=== PATIENT | female | born 1985 | race Hispanic/Latino ===

== ENCOUNTER 2017-03-26 00:23 | Emergency (ER) | payer SELFPAY ==
[2017-03-26 00:46] VITALS: BP 115/76; PULSE 76; RESP 16; TEMP 98; O2SAT 98
[2017-03-26] MEDS ORDERED: Sodium Chloride 0.9% 1,000 ML IV STA (01:00)
[2017-03-26 01:42] LABS: BASO # 0.1 K/uL (0.0-0.2); BASO % 0.7 % (0.0-2.0); EOS # 0.1 K/uL (0.0-0.7); EOS % 1.2 % (0.0-4.0); HEMATOCRIT 38.5 % (34.0-47.0); LYMPH # 2.4 K/uL (1.0-4.3); LYMPH % 21.9 % (20.0-40.0); MEAN CORPUSCULAR HEMOGLOBIN 30.8 pg (27.0-31.0); MEAN CORPUSCULAR HGB CONC 33.1 g/dL (33.0-37.0); MEAN PLATELET VOLUME 9.3 fl (7.2-11.7); MONO # 1.3 K/uL (0.0-0.8); MONO % 12.2 % (0.0-10.0); NEUT # 6.9 K/uL (1.8-7.0); RED CELL DISTRIBUTION WIDTH 13.3 % (11.5-14.5); WHITE BLOOD COUNT 10.8 K/uL (4.8-10.8)
[2017-03-26 01:54] LABS: BLOOD UREA NITROGEN 17 mg/dl (7-17); CALCIUM 9.1 mg/dL (8.4-10.2); CARBON DIOXIDE 27 mmol/L (22-30); CHLORIDE 104 mmol/L (98-107); GFR AFRICAN-AMERICAN > 60; GLUCOSE,RANDOM 85 mg/dL (65-105); POTASSIUM 3.7 MMOL/L (3.6-5.0); SODIUM 141 mmol/l (132-148)
[2017-03-26] MEDS ORDERED: Vancomycin 1 g Inj ONE (02:10)
--- NOTE | 2017-03-26 03:20 | ED PDOC ---
HPI: Skin/Bite Injury Time Seen by Provider: 03/26/17 00:51 Chief Complaint (Nursing): Abnormal Skin Integrity Chief Complaint (Provider): Rash History Per: Patient History/Exam Limitations: no limitations Onset/Duration Of Symptoms: Days (x1-2) Current Symptoms Are (Timing): Still Present Location Of Injury: Right: Elbow Quality Of Symptoms: Other (Erythematous) Additional Complaint(s): 31 year old female presents to ED with complaints of a rash on her right elbow x1-2 days and has a past medical history of psoriasis. Notes that after scratching the area, it is red with streaking upwards to the right armpit area. (+) pain and swelling to the area. (-) fever, chill, or other systemic symptoms. Patient denies IV drug use. PCP: None Past Medical History Reviewed: Historical Data, Nursing Documentation, Vital Signs Vital Signs: Last Vital Signs Temp 98.0 F 03/26/17 00:44 Pulse 76 03/26/17 00:44 Resp 16 03/26/17 00:44 BP 115/76 03/26/17 00:44 Pulse Ox 98 03/26/17 03:23 - Medical History Other PMH: Psoriasis - Surgical History Surgical History: No Surg Hx - Family History Family History: States: No Known Family Hx - Home Medications Home Medications: Ambulatory Orders Medication Instructions Recorded Clindamycin [Cleocin] 300 mg PO TID 10 Days 03/26/17 Ibuprofen [Motrin Tab] 600 mg PO Q6 #30 tab 03/26/17 - Allergies Allergies/Adverse Reactions: Allergies Allergy/AdvReac Type Severity Reaction Status Date / Time No Known Allergies Allergy Verified 03/26/17 00:46 Review of Systems ROS Statement: Except As Marked, All Systems Reviewed And Found Negative Constitutional: Negative for: Fever, Chills Musculoskeletal: Positive for: Arm Pain (with swelling, from right elbow to right axilla) Skin: Positive for: Rash Physical Exam - Reviewed Nursing Documentation Reviewed: Yes Vital Signs Reviewed: Yes - Physical Exam Appears: Positive for: Non-toxic, No Acute Distress Skin: Positive for: Warm, Dry, Rash (swelling and erythematous right elbow. Streaking towards axilla. No inflamed nodes in right axilla) Eye Exam: Positive for: Normal appearance Neck: Positive for: Normal Cardiovascular/Chest: Negative for: Murmur Respiratory: Negative for: Respiratory Distress Gastrointestinal/Abdominal: Positive for: Normal Exam Back: Positive for: Normal Inspection Extremity: Positive for: Normal ROM. Negative for: Deformity Neurologic/Psych: Positive for: Alert, Oriented. Negative for: Motor/Sensory Deficits - Laboratory Results Result Diagrams: 03/26/17 01:30 03/26/17 01:30 - ECG O2 Sat by Pulse Oximetry: 98 (RA) Pulse Ox Interpretation: Normal Medical Decision Making Medical Decision Makin Initial impression: cellulitis Initial plan: * Labs * CRP * Erythrocyte sediment * NS IV * Toradol 30mg IVP * Vancomycin IVPB * BCx * XR ELBOW RT * Re-eval 4AM No gas on xray, no WBC count or ESR. Normal vitals. Will d/c home with strict instructions to return to ED in 2 days for wound check given pt. has no PMD. Return precautions were given: fevers, chlls, worsening celluliits or other concerning symptoms. Scribe Attestation: Documented by Juanis Johnson acting as a scribe for Jayjay Fields MD. Scribe Attestation: All medical record entries made by the Scribe were at my direction and personally dictated by me. I have reviewed the chart and agree that the record accurately reflects my personal performance of the history, physical exam, medical decision making, and the department course for this patient. I have also personally directed, reviewed, and agree with the discharge instructions and disposition. Disposition - Clinical Impression Clinical Impression: Cellulitis - Disposition Referrals: [facility] [Outside] Disposition Time: 04:05 Condition: STABLE Additional Instructions: PLEASE RETURN IN 2 DAYS FOR A WOUND CHECK. IF YOU START HAVING FEVERS, CHILLS, OR ANY OTHER CONCERNING SYMPTOMS PRIOR TO THEN, RETURN IMMEDIATELY. Prescriptions: Clindamycin [Cleocin] 300 mg PO TID 10 Days Ibuprofen [Motrin Tab] 600 mg PO Q6 #30 tab Instructions: Cellulitis (ED)
--- NOTE | 2017-03-26 10:21 | RAD ---
PROCEDURE: Radiographs of the right elbow. HISTORY: cellulitis over elbow joint COMPARISON: No prior. FINDINGS: BONES: Normal. No fracture. JOINTS: Normal. No osteoarthritis. SOFT TISSUES: Normal. JOINT EFFUSION: None. OTHER FINDINGS: None. IMPRESSION: Unremarkable radiographs of the right elbow.
== END 2017-03-26 04:20 | disposition home or self-care (01) ==
LOC: H.ER 00:23
DX: L03.111 Cellulitis of right axilla (principal); L40.9 Psoriasis, unspecified
CPT/HCPCS: 73080; 80048; 81025; 85025; 85651; 86140; 87040; 96365; 96366; 96375; 99281; J1885; J7040